=== PATIENT | female | born 1955 | race Caucasian/White ===

== ENCOUNTER 2016-05-25 06:37 | Day surgery (SDC) | payer OTHER ==
[2016-05-23 08:54] LABS: ANION GAP 9.9 mmol/L (8-16); CARBON DIOXIDE 31.1 mmol/L (21.0-32.0); CREATININE - SERUM 0.9 mg/dL (0.6-1.3)
[2016-05-23 09:02] LABS: HEMATOCRIT 46.2 % (36.0-48.0); HEMOGLOBIN 14.8 g/dL (12-16); MCH 29.5 pg (26.0-34.0); MCV 92.2 fL (80.0-100.0); MEAN PLATELET VOLUME 11.5 fL (7.4-10.4); RBC 5.01 10x6/uL (4.00-5.40); RDW 13.7 % (11.5-14.5); WBC 14.7 10x3/uL (4.8-10.8)
[~2016-05-25] VITALS: Ht 165.1 cm; Wt 97.1 kg
[~2016-05-25 06:37] MED LIST: CELEXA20 MG PO; CIPRO500 MG PO; GLIMEPIRIDE4 MG PO; GLUCOPHAGE500 MG PO; PRAVASTATIN SOD10 MG PO; TOPROL XL25 MG PO; VICODIN ES 7.51 EAC1 PO; ZESTRIL40 MG PO
[2016-05-25 07:57] VITALS: BP 139/73; Ht 165.1 cm; Wt 97.1 kg
--- NOTE | 2016-05-25 10:19 | NUR ---
CAUTERY PADS USED LOT #[id number], EXP 12/29/17
--- NOTE | 2016-05-25 14:03 | NUR ---
1225-IV DISCONTINUED, CATHETER INTACT, COTTON BALL AND BANDAID APPLIED. DISCHARGE INSTRUCTIONS GIVEN. PT. ESCORTED VIA WHEELCHAIR TO PERSONAL CAR, LEFT WITH DRIVING.
--- NOTE | 2016-07-11 10:17 | OP ---
PATIENT NAME: ARIADNE BROOKS MEDICAL RECORD: [id number] :57 LOCATION:D.OPS ADMISSION DATE: SURGEON: HALEIGH EVANGELISTA MD DATE OF OPERATION: 05/25/2016 PREOPERATIVE DIAGNOSIS: Tubular adenoma with high-grade dysplasia at 20 cm. POSTOPERATIVE DIAGNOSIS: Tubular adenoma with high-grade dysplasia at 20 cm with significant regrowth of this polypoid lesion. PROCEDURES: 1. Total colonoscopy to cecum. 2. Cold biopsies of the polyp and polypectomy with the argon plasma wood ski maker. 3. Submucosal injection through a sclerotherapy needle at the site of the polyp for further identification in the future. SURGEON: Haleigh Evangelista MD DATAWAREHOUSE DEVELOPER: None. BLOOD LOSS: Minimal. ANESTHESIA: General. COMPLICATIONS: None. The risks, possible complications and alternatives to procedure were explained to the patient. She elects to proceed. The discussion specifically included, but was not limited to, bleeding requiring emergency reoperation, infection post-polypectomy syndrome and endoscopic perforation. ENDOSCOPIC COURSE: The patient was conveyed to the operating room electively 05/25/2016. General anesthesia was induced by the anesthesia staff. The patient was placed in the Carter position. A digital rectal examination was performed. A colonoscope was inserted through the anus. It was easily advanced to the cecum. The prep was adequate. I slowly withdrew the endoscope. I irrigated and then aspirated extensively. I dragged the folds. The pullback was greater than a 14-minute pullback. The lesion was easily identifiable. Multiple cold biopsies of the polyp were performed. Almost all the polyp was biopsied. I then advanced the argon plasma wood ski maker and utilizing the right colon setting in the forced mode, I ablated the remainder of the polyp which was on the fold. In order to identify this area in the future, which may be difficult to identify, I advanced a sclerotherapy needle. A submucosal injection of 3 cc in the ankle was performed just next to the ablated polyp on the fold. The endoscope was withdrawn into the rectum. A retroflexed view was obtained in the rectum. I then unretroflexed the scope and removed it under direct vision. If no invasive malignancy is identified on the biopsies, I am going to plan for the next colonoscopy with the argon plasma wood ski maker to take place in 1 year. TRANSINT:[id number] Voice Confirmation ID: [id number] DOCUMENT ID: [id number] OPERATIVE REPORT [id number] ARIADNE BROOKS ROBERT MD at 1017 CC: ALBERTO MTZ DO and TIA MAST MD [id number] DICTATION DATE: 05/25/16 1124 SEED POTATO ARRANGER: 05/25/16 1202 [facility] [place] 05/25/16 [place] [id number] [place] [id number]
--- NOTE | 2016-07-11 10:17 | HP ---
PATIENT: ARIADNE BROOKS MEDICAL RECORD: [id number] ACCOUNT: [id number] LOCATION:[facility] : 57 ADMISSION DATE: 05/25/16 HISTORY AND PHYSICAL EXAMINATION HISTORY OF PRESENT ILLNESS: The patient underwent colonoscopy. I have personally reviewed the endoscopic photos. I have personally reviewed the endoscopic report. The patient had a polyp of the sigmoid colon at 20 cm, which was a tubular adenoma with focal high-grade dysplasia. I have been asked to reexamine the area and perform a polypectomy with the argon plasma ore crusher. This is a radiofrequency type of ablation of a benign and colonic process. The Endolips were applied for the purpose of vascular compression. This colonoscopy was performed on 03/28/2016. There is the probability that there has been significant regrowth of polyp since that time. The risks, possible complications and alternatives to procedure were explained to the patient. She elects to proceed. SOCIAL HISTORY: Nonsmoker. ALLERGIES: No known drug allergies. HOME MEDICINES: Celexa, Amaryl, Zestril, Glucophage, and Pravachol. PAST MEDICAL AND SURGICAL HISTORY: Hyperlipidemia, noninsulin-dependent diabetes mellitus, hypertension, sleep apnea on CPAP, occasional gastroesophageal reflux. She takes [id number] medicines as needed, history breast surgery. REVIEW OF SYSTEMS: Negative for CVA or seizures. Negative for renal disease or thyroid disease. The review of systems is negative other than as is described above. PHYSICAL EXAMINATION: GENERAL: The patient does not appear acutely ill. She does not appear chronically ill. VITAL SIGNS: Reviewed. HEAD: External ears appear normal. EYES: Extraocular movements are intact. NECK: Trachea is midline. CHEST: No intercostal retractions. PULMONARY: Nonlabored and no stridor. ABDOMEN: Nontender. IMPRESSION: Colon polyp at 20 cm with a focus of a high-grade dysplasia. PLAN: Colonoscopy and polypectomy with the argon plasma ore crusher. TRANSINT:[id number] Voice Confirmation ID: [id number] DOCUMENT ID: [id number] HISTORY AND PHYSICAL [id number] ARIADNE BROOKS ROBERT MD at 1017 CC: ALBERTO MTZ DO and TIA MAST MD [id number] DICTATION DATE: 05/25/16 1114 MUCKER COFFERDAM: 05/25/16 1129 [facility] 05/25/16 [facility] [address] [place] [id number]
== END 2016-05-25 12:25 | disposition home or self-care (01) ==
LOC: D.OPS 06:37 → D.PAN 08:45 → D.OPS 08:45
PROVIDERS: Anesthesiology
DX: D12.6 Benign neoplasm of colon, unspecified (principal); E78.5 Hyperlipidemia, unspecified; E11.9 Type 2 diabetes mellitus without complications; I10 Essential (primary) hypertension; G47.30 Sleep apnea, unspecified; K21.9 Gastro-esophageal reflux disease without esophagitis; Z79.84 Long term (current) use of oral hypoglycemic drugs; Z79.899 Other long term (current) drug therapy

== ENCOUNTER 2016-05-28 10:32 | Day surgery (SDC) | payer OTHER ==
[~2016-05-28] VITALS: Ht 165.1 cm; Wt 96.4 kg
[2016-05-28 09:01] LABS: BASOPHILS 0.3 % (0.0-2.0); EOSINOPHILS 0.6 % (0-7); HEMATOCRIT 46.2 % (36.0-48.0); HEMOGLOBIN 15.1 g/dL (12-16); IMMATURE GRANULOCYTES 0.4 % (0-5); LYMPHOCYTES 13.3 % (15-50); MCH 30.1 pg (26.0-34.0); MCHC 32.7 g/dL (31.0-37.0); MCV 92.2 fL (80.0-100.0); MEAN PLATELET VOLUME 11.4 fL (7.4-10.4); MONOCYTES 9.1 % (2-11); NEUTROPHILS 76.3 % (40-80); PLATELET COUNT 255 10x3/uL (130-400); RBC 5.01 10x6/uL (4.00-5.40); RDW 13.8 % (11.5-14.5)
[2016-05-28 09:09] LABS: APPEARANCE SLT CLOUDY (CLEAR); BACTERIA FEW /hpf (NONE SEEN); BILIRUBIN NEGATIVE (NEGATIVE); COLOR PINK (YELLOW); EPITHELIAL CELLS RARE /hpf (0-5); GLUCOSE NEGATIVE (NEGATIVE); KETONE NEGATIVE (NEGATIVE); LEUKOCYTE ESTERASE NEGATIVE (NEGATIVE); NITRITE NEGATIVE (NEGATIVE); PROTEIN TRACE mg/dL (NEGATIVE); RED CELLS - URINE 25-50 /hpf (0-5); SPECIFIC GRAVITY 1.015 (1.005-1.020); UROBILINOGEN NORMAL (NORMAL); WHITE CELLS - URINE NSEEN /hpf (0-5)
[2016-05-28 09:21] LABS: APTT 25.4 SECONDS (22.8-39.4); INR 1.03 (0.85-1.17); PROTIME 13.3 SECONDS (11.6-15.0)
[2016-05-28 09:23] LABS: ALBUMIN 3.2 g/dL (3.4-5.0); ANION GAP 12.1 mmol/L (8-16); BILIRUBIN - TOTAL 0.31 mg/dL (0.2-1.3); CALCIUM 8.8 mg/dL (8.5-10.1); CARBON DIOXIDE 28.4 mmol/L (21.0-32.0); CREATININE - SERUM 0.9 mg/dL (0.6-1.3); MAGNESIUM - SERUM 1.7 mg/dL (1.8-2.4); POTASSIUM - SERUM 3.5 mmol/L (3.5-5.1); PROTEIN - SERUM 6.8 g/dL (6.4-8.2)
[2016-05-28 11:09] LABS: BASOPHILS 0.2 % (0.0-2.0); EOSINOPHILS 0.6 % (0-7); HEMATOCRIT 41.1 % (36.0-48.0); HEMOGLOBIN 13.2 g/dL (12-16); IMMATURE GRANULOCYTES 0.3 % (0-5); LYMPHOCYTES 10.3 % (15-50); MCH 29.5 pg (26.0-34.0); MCHC 32.1 g/dL (31.0-37.0); MCV 91.9 fL (80.0-100.0); MEAN PLATELET VOLUME 10.8 fL (7.4-10.4); MONOCYTES 9.4 % (2-11); NEUTROPHILS 79.2 % (40-80); PLATELET COUNT 222 10x3/uL (130-400); RBC 4.47 10x6/uL (4.00-5.40); RDW 13.8 % (11.5-14.5); WBC 15.5 10x3/uL (4.8-10.8)
[2016-05-28 13:20] LABS: BASOPHILS 0.3 % (0.0-2.0); EOSINOPHILS 0.5 % (0-7); HEMATOCRIT 41.8 % (36.0-48.0); HEMOGLOBIN 13.5 g/dL (12-16); IMMATURE GRANULOCYTES 0.3 % (0-5); LYMPHOCYTES 11.6 % (15-50); MCH 29.6 pg (26.0-34.0); MCHC 32.3 g/dL (31.0-37.0); MCV 91.7 fL (80.0-100.0); MEAN PLATELET VOLUME 11.3 fL (7.4-10.4); NEUTROPHILS 78.3 % (40-80); PLATELET COUNT 234 10x3/uL (130-400); RBC 4.56 10x6/uL (4.00-5.40); RDW 13.7 % (11.5-14.5); WBC 15.8 10x3/uL (4.8-10.8)
[2016-05-28 17:15] LABS: BASOPHILS 0.2 % (0.0-2.0); EOSINOPHILS 0.5 % (0-7); HEMATOCRIT 40.6 % (36.0-48.0); HEMOGLOBIN 13.2 g/dL (12-16); IMMATURE GRANULOCYTES 0.3 % (0-5); LYMPHOCYTES 10.8 % (15-50); MCH 29.9 pg (26.0-34.0); MCHC 32.5 g/dL (31.0-37.0); MCV 92.1 fL (80.0-100.0); MEAN PLATELET VOLUME 11.2 fL (7.4-10.4); MONOCYTES 8.8 % (2-11); NEUTROPHILS 79.4 % (40-80); PLATELET COUNT 235 10x3/uL (130-400); RBC 4.41 10x6/uL (4.00-5.40); RDW 13.8 % (11.5-14.5); WBC 16.5 10x3/uL (4.8-10.8)
--- NOTE | 2016-05-28 21:45 | NUR ---
JOO MALDONADO RN RECEIVED PT VIA WC FROM ED, JOO MALDONADO RN REPORTS TO MED THAT PT TRANSFERRED SELF TO BED WITH NO DIFFICULTY AND THAT SHE OBTAINED VS, REPORTS THAT PT BROUGHT OWN C-PAP MACHINE AND IS GETTING IT READY FOR TONIGHT
--- NOTE | 2016-05-28 21:55 | NUR ---
ADMITTING ASSESSMENT, HISTORY, AND MED REC STARTED, SPOUSE AT BEDSIDE
[2016-05-28 22:09] VITALS: BP 149/92; Ht 165.1 cm; Wt 96.4 kg
--- NOTE | 2016-05-28 22:20 | NUR ---
ADMITTING ASSESSMENT, HISTORY AND MED REC COMPLETED, POC DISCUSSED WITH PT, PT VERBALIZES UNDERSTANDING, INFORMED PT THAT I AM GOING TO LOOK OVER HER ORDERS AND THAT I WILL BE BACK IN TO CONVERT SALINE LOCK TO IV WITH FLUIDS AND HANG AN ANTIBIOTIC, PT VERBALIZES UNDERSTANDING, REQUESTED AND SERVED DIET [place], SPOUSE AT BEDSIDE
--- NOTE | 2016-05-28 22:20 | NUR ---
LATE ENTRY: PT REFUSES ASSEMBLY TECHNICIAN AT THIS TIME
[2016-05-28] MEDS ORDERED: GLUCOPHAGE500 MG PO (22:26)
[2016-05-28] MEDS ORDERED: GLIMEPIRIDE4 MG PO (22:27)
[2016-05-28] MEDS ORDERED: PRAVACHOL40 MG PO (22:27)
[2016-05-28] MEDS ORDERED: AVAPRO150 MG PO (22:28)
[2016-05-28] MEDS ORDERED: CELEXA20 MG PO (22:29)
[2016-05-28] MEDS ORDERED: FLAGYL500 MG PO (22:30)
--- NOTE | 2016-05-28 23:28 | NUR ---
SALINE LOCK IN RIGHT WRIST CONVERTED TO IV INFUSING NS AT 100 ML/HR, SEE EMAR, MERREM HUNG IVPB PER MD ORDERS, SEE EMAR
--- NOTE | 2016-05-28 23:35 | NUR ---
CONSENTS SIGNED AND WITNESSED, PT INST ON NPO AFTER MIDNIGHT, PT VERBALIZES UNDERSTANDING, PT DENIES NEEDS OR PAIN, CONTINUES TO REFUSE MIDDLEWARE DEVELOPER, SPOUSE AT BEDSIDE
--- NOTE | 2016-05-29 00:34 | NUR ---
PT RESTING WITH EYES CLOSED, CPAP ON, RESP QUIET, NO DISTRESS NOTED, LEFT UNDISTURBED AT THIS TIME, SPOUSE ASLEEP IN RECLINER
--- NOTE | 2016-05-29 02:19 | NUR ---
PT RESTING WITH EYES CLOSED, CPAP ON, RESP QUIET, NO DISTRESS NOTED, LEFT UNDISTURBED AT THIS TIME, SPOUSE ASLEEP IN RECLINER
[2016-05-29 03:33] VITALS: BP 155/78
--- NOTE | 2016-05-29 03:33 | NUR ---
PT RESTING WITH EYES CLOSED, AROUSES TO SOFT VERBAL STIMULATION, VS OBTAINED, ADM PEPCI SIVP PER MD ORDERS, SEE EMAR, PT UP TO BR, GAIT STEADY, VOIDED 600 MLS OF YELLOW URINE BY SELF WITH NO DIFFICULTY, DENIES ANY RECTAL BLEEDING, PT BACK TO BED, DENIES FURTHER NEEDS OR PAIN, SPOUSE AT BEDSIDE
--- NOTE | 2016-05-29 04:44 | NUR ---
PT AROUSES TO OPENING OF DOOR, DENIES NEEDS OR PAIN AT THIS TIME, SPOUSE ASLEEP IN RECLINER
--- NOTE | 2016-05-29 06:00 | NUR ---
PT RESTING WITH EYES CLOSED, RESP QUIET, NO DISTRESS NOTED, LEFT UNDISTURBED AT THIS TIME, SPOUSE ASLEEP IN RECLINER
--- NOTE | 2016-05-29 06:41 | NUR ---
PT AWAKE, MERREM HUNG IVPB PER MD ORDERS, SEE EMAR, PT DENIES NEEDS OR PAIN AT THIS TIME
[2016-05-29 06:47] LABS: BASOPHILS 0.4 % (0.0-2.0); EOSINOPHILS 0.6 % (0-7); HEMOGLOBIN 13.1 g/dL (12-16); IMMATURE GRANULOCYTES 0.2 % (0-5); LYMPHOCYTES 16.1 % (15-50); MCH 29.4 pg (26.0-34.0); MCV 91.9 fL (80.0-100.0); MEAN PLATELET VOLUME 11.4 fL (7.4-10.4); MONOCYTES 8.6 % (2-11); NEUTROPHILS 74.1 % (40-80); PLATELET COUNT 232 10x3/uL (130-400); RBC 4.46 10x6/uL (4.00-5.40); WBC 13.2 10x3/uL (4.8-10.8)
--- NOTE | 2016-05-29 07:00 | NUR ---
SHIFT REPORT TO DAY SHIFT
--- NOTE | 2016-05-29 07:50 | NUR ---
PATEINT IS RESTING QUIETLY WITH EVEN RESPIRATIONS, COVERS PULLED UP OVER HER HEAD, CPAP WORN AND ON. AT THE BEDSIDE AWAKENED TO MY ENTRY. HE STATES THAT THEY ARE FINE CURRENTLY. SURGERY CONSENTS ARE SIGNED. CALL LIGHT IS WITHIN HER REACH.
[2016-05-29] MEDS ORDERED: METFORMIN HCL500 M1 PO (08:23)
--- NOTE | 2016-05-29 09:35 | NUR ---
PATIENT AWAKE AND AMBULATORY AROUND HER ROOM. SHE STATES THAT SHE HAS BEEN WITHOUT BLEEDING SINCE YESTERDAY AT 1500. SHE QUESTIONS NEED FOR COLONOSCOPY AND EVEN STATES THAT SHE WOULD RATHER NOT HAVE IT IF IT'S NOT NECESSARY. CALL PLACED TO DR. EVANGELISTA. HE WILL COME BY TO SEE HER THIS MORNING.
--- NOTE | 2016-05-29 10:30 | NUR ---
DR. EVANGELISTA HAS BEEN BY TO ASSESS PATIRADHA. REVIEWING DISCHARGE INSTRUCTIONS FOR DISCHARGE. NEW ORDERS RECEIVED.
--- NOTE | 2016-05-29 12:48 | NUR ---
DIANNA'S BOWEL SOUNDS ARE ACTIVE, SHE IS PASSING GAS AND HAS HAD A BM. REVIEWED DISCHARGE INSTRUCTIONS WITH SHE AND HER .
--- NOTE | 2016-05-29 13:01 | NUR ---
DIANNA REQUESTED PERMISSION TO WALK TO THE FRONT DOOR ACCOMPANIED BY HER .. SHE DENIES PAIN, DIZZINESS, WEAKNESS.
--- NOTE | 2016-07-11 10:17 | HP ---
PATIENT: ARIADNE BROOKS MEDICAL RECORD: [id number] ACCOUNT: [id number] LOCATION:[facility] : 57 ADMISSION DATE: 05/28/16 HISTORY AND PHYSICAL EXAMINATION CHIEF COMPLAINT: Bleeding. HISTORY OF PRESENT ILLNESS: The patient is having a post-polypectomy bleeding. She underwent a colonoscopy with polypectomy utilizing the argon plasma candy separator enrobing on 05/25/2016. This was for a polyp that there was a tubular adenoma with high-grade dysplasia. The patient had no bleeding until this morning. She states she has had about 9 bloody bowel movements. She was able to defecate here in the Emergency Room and I was able to visualized one of those bowel movements. She is having no abdominal pain. No nausea. No recent trauma, no fever. She is hemodynamically stable here in the Emergency Room. I will plan to start her on IV antibiotics. Plan for therapeutic colonoscopy tomorrow. Nothing aggravates. Nothing alleviates. Symptoms were of sudden onset. Nonradiating symptoms. REVIEW OF SYSTEMS: No night sweats, no weight loss, no anorexia, no hemoptysis. SOCIAL HISTORY: Nonsmoker. PAST MEDICAL HISTORY AND PAST SURGICAL HISTORY: Breast reduction, , hypertension, noninsulin-dependent diabetes mellitus, hyperlipidemia, and rib fracture. ALLERGIES: No known drug allergies. HOME MEDICINES: Metformin. PHYSICAL EXAMINATION: GENERAL: The patient does not appear acutely ill. She does not appear chronically ill. VITAL SIGNS: Reviewed. HEAD: External ears appear normal. EYES: Extraocular movements are intact. NECK: Trachea is midline. CHEST: No intercostal retractions. PULMONARY: Nonlabored, no stridor. ABDOMEN: Nontender. EXTREMITIES: No peripheral cyanosis. INTEGUMENT: No rash, no ulcerations. PSYCHIATRIC: Normal affect. NEUROLOGIC: Nonfocal, no lethargy. The patient answers questions appropriately, moves all extremities well. BACK: No thoracic kyphosis. LYMPHATICS: No lymphangitic streaking of the exposed extremities. IMPRESSION: Post-polypectomy bleeding. PLAN: IV fluids. IV antiemetics. IV antibiotics. Therapeutic colonoscopy tomorrow if the bleeding persists. HISTORY AND PHYSICAL [id number] ARIADNE BROOKS TRANSINT:[id number] Voice Confirmation ID: [id number] DOCUMENT ID: [id number] HALEIGH EVANGELISTA MD at 1017 CC: [id number] DICTATION DATE: 05/28/16 1035 GEOSPATIAL APPLICATIONS DEVELOPER: 05/28/16 1046 [facility] 05/29/16 [facility] [address] [place] [address]
--- NOTE | 2016-07-11 10:17 | DS ---
PATIENT:ARIADNE BROOKS :57 MEDICAL RECORD: [id number] DISCHARGE SUMMARY ADMISSION DATE: 05/28/16 DISCHARGE DATE: 05/29/16 PRINCIPAL DIAGNOSIS: Post-polypectomy bleeding. HOSPITAL COURSE: The patient was admitted through the Emergency Room with post-polypectomy bleeding. She was having quite a number of stools when she presented. She was started intravenous antibiotics. The following day, her bleeding had stopped. The pathology on the polyp revealed portions of a hyperplastic polyp with minimal chronic inflammation. She is already on Flagyl. I have told her to remain on Flagyl. I would like her to have loose stools for the next couple of weeks. She is to avoid aspirin, anti-inflammatories, and any blood thinners. Symptoms are improved. She is having no abdominal pain. Nothing aggravates. Nothing alleviates. REVIEW OF SYSTEMS: No nausea, no vomiting, no fever, no chills. For the typed portion of the progress note including the addendum, which lists the past medical and surgical history, allergies, current medications, and allergies, please see the chart. PHYSICAL EXAMINATION: GENERAL: The patient does not appear acutely ill. She does not appear chronically ill. VITAL SIGNS: Reviewed. HEAD: External ears appear normal. EYES: Extraocular movements are intact. NECK: Trachea is midline. CHEST: No intercostal retractions. PULMONARY: Nonlabored, no stridor. ABDOMEN: Nontender. EXTREMITIES: No peripheral cyanosis. INTEGUMENT: No rash, no ulcerations. PSYCHIATRIC: Normal affect. NEUROLOGIC: Nonfocal, no lethargy. The patient answers questions appropriately, moves all extremities well. BACK: No thoracic kyphosis. LYMPHATIC: No lymphangitic streaking of the exposed extremities. IMPRESSION: Resolved post-polypectomy bleeding. PLAN: As described above. TRANSINT:[id number] Voice Confirmation ID: [id number] DOCUMENT ID: [id number] DISCHARGE SUMMARY REPORT [id number] ARIADNE BROOKS, HALEIGH WHITEHEAD at 1017 CC: [id number] DICTATION DATE: 05/29/16 1048 MANUFACTURING ENGINEER ASSEMBLY: 05/29/16 1100 [facility] 05/29/16 [place] [address]
== END 2016-05-29 13:06 | disposition home or self-care (01) ==
LOC: D.OPS 10:32 → D.WS 10:32 → D.OPS 05-29 13:06 → D.WS 05-29 13:06 → EDSTATUS 05-29 15:45
PROVIDERS: Emergency Medicine
DX: K91.840 Postprocedural hemorrhage of a digestive system organ or structure following a digestive system procedure (principal); E78.5 Hyperlipidemia, unspecified; E11.9 Type 2 diabetes mellitus without complications; I10 Essential (primary) hypertension; G47.30 Sleep apnea, unspecified; K21.9 Gastro-esophageal reflux disease without esophagitis; Z53.9 Procedure and treatment not carried out, unspecified reason

== ENCOUNTER 2017-06-05 08:37 | Day surgery (SDC) | payer OTHER ==
[~2017-06-05] VITALS: Ht 165.1 cm; Wt 73.0 kg
--- NOTE | ~2017-06-05 | OP ---
PATIENT NAME: ARIADNE BROOKS MEDICAL RECORD: [id number] :57 LOCATION:DBECKY ADMISSION DATE: SURGEON: CHIDI EVANGELISTA MD DATE OF OPERATION: 06/05/2017 PREOPERATIVE DIAGNOSES: History of tubular adenoma with high-grade dysplasia at 20 cm from the anus and history of post-polypectomy bleeding. POSTOPERATIVE DIAGNOSES: History of tubular adenoma with high-grade dysplasia at 20 cm from the anus with no evidence of regrowth of the polyp, history of post-polypectomy bleeding, and cecal and ascending colon colitis, moderate with ulcerations. PROCEDURES: 1. Total colonoscopy to cecum. 2. Hot biopsy forceps in the area of colitis involving the right colon. 3. Cold biopsies in the area that was tattooed at 20 cm and then treatment of the biopsy sites with the argon plasma fork truck driver for hemostasis. SURGEON: Chidi Evangelista MD RESTUARANT CREW WORKER: None. BLOOD LOSS: Minimal. ANESTHESIA: General. COMPLICATIONS: None. The hot biopsies were performed and the argon plasma fork truck driver was employed in order to provide complete hemostasis as the patient has had a history of a post-polypectomy bleeding. OPERATIVE COURSE: The patient was conveyed to the operating room electively on 06/05/2017. General anesthesia was induced by the anesthesia staff. The patient was placed in the Carter position. A digital rectal examination was performed. A colonoscope was inserted through the anus. It was easily advanced to the cecum. Hot biopsies in the area of colitis were performed. I intubated the ileum briefly and identified no ileitis. I slowly withdrew the endoscope. I irrigated and aspirated extensively. The pullback was greater than 16-minute pullback. In the area that was tattooed, I searched for any recurrent polyp. I performed a few biopsies in this area, which were cold endoscopic biopsies. The biopsy sites were made completely hemostatic with the argon plasma fork truck driver utilizing the right colon setting in the forced mode. A retroflexed view was obtained in the rectum. I then unretroflexed the scope and removed it under direct vision. I will see the patient in my office in 2-3 weeks. I want to plan to turn her endoscopic care back over to her metallurgical technician. TRANSINT:[id number] Voice Confirmation ID: [id number] DOCUMENT ID: [id number] OPERATIVE REPORT [id number] ARIADNE BROOKS CHIDI EVANGELISTA MD at 1212 CC: [id number] DICTATION DATE: 06/05/17 1649 SUPERVISOR SHUTTLE VENEERING: 06/05/17 1719 [facility] 06/05/17 [place] [id number] [place] [address]
--- NOTE | ~2017-06-05 | HP ---
PATIENT: ARIADNE BROOKS MEDICAL RECORD: [id number] ACCOUNT: [id number] LOCATION:[facility] : 57 ADMISSION DATE: 06/05/17 HISTORY AND PHYSICAL EXAMINATION HISTORY OF PRESENT ILLNESS: The patient has a history of a tubular adenoma with high-grade dysplasia at 20 cm. The patient underwent a colonoscopy a little over a year ago and this revealed no significant regrowth of this polypoid lesion. I tattooed the area in order to help identify in the future should the patient require additional colonoscopies as is going to take place today. The patient has had no significant symptoms. She does have a history of post-polypectomy bleeding and is very concerned about that. I reviewed the patient's history and physical examination. I reviewed the patient's current medications. PHYSICAL EXAMINATION: GENERAL: The patient does not appear acutely ill. She does not appear chronically ill. VITAL SIGNS: Reviewed. EARS: External ears appear normal. EYES: Extraocular movements are intact. NECK: Trachea is midline. CHEST: No intercostal retractions. PULMONARY: Nonlabored, no stridor. ABDOMEN: Nontender. IMPRESSION: The patient has a history of tubular adenoma with high-grade dysplasia at 20 cm from the anus and the area has been tattooed. PLAN: Colonoscopy, biopsies, a polypectomy if any polypoid tissue is identified. TRANSINT:[id number] Voice Confirmation ID: [id number] DOCUMENT ID: [id number] HALEIGH EVANGELISTA MD at 1212 CC: [id number] DICTATION DATE: 06/05/17 1644 KINDERGARTEN AIDE: 06/05/17 1717 [facility] 06/05/17 [facility] [address] [place] [address]
[~2017-06-05 08:37] MED LIST changes: +AVAPRO150 MG PO; +FLAGYL500 MG PO; +FLINTSTONE1 TAB.CHEW PO; +METFORMIN HCL500 M1 PO; +OYST-CAL-5001 TAB PO; +PRAVACHOL20 MG PO; +TRULICITY0.75 MG/0. SC
[2017-06-05 09:21] VITALS: BP 120/64; Ht 165.1 cm; Wt 73.0 kg
[2017-06-05 09:49] LABS: HEMATOCRIT 46.8 % (36.0-48.0); HEMOGLOBIN 15.7 g/dL (12-16); MCH 31.2 pg (26.0-34.0); MCHC 33.5 g/dL (31.0-37.0); RBC 5.03 10x6/uL (4.00-5.40); RDW 13.6 % (11.5-14.5); WBC 10.8 10x3/uL (4.8-10.8)
[2017-06-05 09:59] LABS: CALC OSMOLALITY 285 mosm/kg (275-300); CALCIUM 8.6 mg/dL (8.5-10.1); CARBON DIOXIDE 28.5 mmol/L (21.0-32.0); CHLORIDE - SERUM 107 mmol/L (98-107); CREATININE - SERUM 0.8 mg/dL (0.6-1.3); GLUCOSE 121 mg/dL (74-106); POTASSIUM - SERUM 3.6 mmol/L (3.5-5.1); SODIUM 143 mmol/L (136-145); UREA NITROGEN 13 mg/dL (7-18); eGFR NON AFRICAN AMERICAN 77 mL/min (90-120)
== END 2017-06-05 18:35 | disposition home or self-care (01) ==
LOC: D.OPS 08:37 → D.PAN 11:15 → D.OPS 11:15
PROVIDERS: Anesthesiology
DX: K63.5 Polyp of colon (principal); K51.80 Other ulcerative colitis without complications; Z01.812 Encounter for preprocedural laboratory examination